=== PATIENT | male | born 1965 | race Caucasian/White ===

== ENCOUNTER 2017-07-01 13:45 | Emergency (ER) | payer OTHER ==
[~2017-07-01] VITALS: Ht 177.8 cm; Wt 77.1 kg
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
[~2017-07-01 13:45] MED LIST: ACETAMINOPHEN1 EACH PO; CENTRUM PO; CENTRUM SILVER1 EAC2 PO; KEFLEX500 MG PO; LORTAB 5-325 M1 EACH PO; NEXIUM PO; PERCOCET 5-3251 TAB PO; PRILOSEC20 MG; PRILOSEC20 MG PO; TUMS500 MG PO; TYLOX 5/500 CAP1 CAP PO; UNABLE TO OBTAIN; VOLTAREN75 MG PO; ZOFRAN ODT4 MG PO
== END 2017-07-01 16:26 | disposition home or self-care (01) ==
LOC: SED 13:45
DX: S09.90XA Unspecified injury of head, initial encounter (principal); S16.1XXA Strain of muscle, fascia and tendon at neck level, initial encounter; S40.011A Contusion of right shoulder, initial encounter; S02.2XXA Fracture of nasal bones, initial encounter for closed fracture; I10 Essential (primary) hypertension; F17.200 Nicotine dependence, unspecified, uncomplicated; Z79.899 Other long term (current) drug therapy; Z88.8 Allergy status to other drugs, medicaments and biological substances; V43.52XA Car driver injured in collision with other type car in traffic accident, initial encounter
CPT/HCPCS: 70450; 70486; 72125; 73030; 99284

== ENCOUNTER → 2017-07-12 | Outpatient (CLI) | payer OTHER ==
--- NOTE | ~2017-07-12 | EKG ---
PATIENT: BRIAN GALLAGHER UNIT #: [id number] Ventricular Rate: 99 BPM Atrial Rate: 99 BPM P-R Interval: 140 ms QRS Duration: 74 ms Q-T Interval: 344 ms QTC Calculation(Bezet): 441 ms P [place]: 61 degrees Calculated R [place]: 46 degrees Calculated T [place]: 64 degrees Diagnosis Line: Normal sinus rhythm Diagnosis Line: Normal ECG Diagnosis Line: When compared with ECG of 19-FEB-2016 14:31, Diagnosis Line: No significant change was found Diagnosis Line: Confirmed by HUGO ADLER MD ([id number]) on 07/13/2017 Diagnosis Line: 10:22:18 PM INTERPRETING MD: VITOR ZUNIGA
[2017-07-12 14:26] LABS: HEMATOCRIT 47.4 % (38.0-50.0); HEMOGLOBIN 15.9 gm/dL (13.0-16.0); MEAN CELL VOLUME 93.6 FL (83-96); MEAN CORPUSCULAR HEMOGLOBIN 31.5 PG (28-34); MEAN CORPUSCULAR HGB CONC 33.6 g/dL (30-36); MEAN PLATELET VOLUME 7.8 FL (6.5-11.5); RED BLOOD COUNT 5.06 X10e (3.90-5.60); RED CELL DISTRIBUTION WIDTH 13.5 % (11.0-15.5); WHITE BLOOD COUNT 16.6 X10e3 (4.0-10.5)
[2017-07-12 14:44] LABS: BUN/CREATININE RATIO 6.15; CALCIUM SERUM 8.9 mg/dL (8.4-10.2); CREATININE SERUM 1.3 mg/dL (0.6-1.4); GLOM FILT RATE Estimated 62.3 mL/min (>60); POTASSIUM 3.6 mmol/L (3.5-5.1)
== END | disposition home or self-care (01) ==
LOC: CLAB 13:31
PROVIDERS: Specialist
DX: S02.2XXA Fracture of nasal bones, initial encounter for closed fracture (principal)
CPT/HCPCS: 36415; 80048; 85027; 93005